=== PATIENT | female | born 1950 | race Caucasian/White ===

== ENCOUNTER 2024-04-17 13:14 | Emergency (ER) | payer MEDICARE ==
[2024-04-17 13:48] LABS: BASOPHILS ABSOLUTE AUTO 0.04 K/uL (0.00-0.10); BASOPHILS PERCENT AUTO 0.4 % (0.1-1.3); EOSINOPHILS ABSOLUTE AUTO 0.07 K/uL (0.00-0.40); EOSINOPHILS PERCENT AUTO 0.8 % (0.0-5.4); HEMATOCRIT 39.7 % (34.3-46.0); HEMOGLOBIN 13.9 g/dL (11.2-15.5); IMMATURE GRAN ABSOLUTE AUTO 0.06 K/uL (0.00-0.23); IMMATURE GRAN PERCENT AUTO 0.7 % (0.0-0.7); LYMPHOCYTES ABSOLUTE AUTO 1.36 K/uL (0.8-3.3); LYMPHOCYTES PERCENT AUTO 14.8 % (11.4-47.7); MEAN CORPUSCULAR HEMOGLOBIN 32.4 pg (31.6-35.5); MEAN CORPUSCULAR VOLUME 92.5 fL (81.4-99.0); MONOCYTES ABSOLUTE AUTO 0.37 K/uL (0.20-0.90); NEUTROPHILS ABSOLUTE AUTO 7.26 K/uL (1.0-7.6); NEUTROPHILS PERCENT AUTO 79.3 % (40.0-78.1); PLATELET COUNT,PLT 243 K/uL (130-375); RED BLOOD CELL COUNT 4.29 M/uL (3.77-5.24); WHITE BLOOD CELL COUNT,WBC 9.2 K/uL (3.2-11.0)
[2024-04-17] MEDS: Ondansetron 4 MG/2 ML SDV IVPUSH ONE (13:52)
[2024-04-17] MEDS: HYDROmorphone 0.5 MG/0.5 ML Syringe IVPUSH ONE (13:52)
[2024-04-17] MEDS: Sodium Chloride 0.9% 1,000 ML IV ONE (13:52)
[2024-04-17 14:08] LABS: A/G RATIO 1.1 (1.2-2.2); ALANINE AMINOTRANSFERASE,ALT 18 U/L (12-78); ALKALINE PHOSPHATASE 108 U/L (46-116); ANION GAP 14.6 mmol/L (5.0-14.0); ASPARTATE AMNIOTRANSFERASE,AST 16 U/L (15-37); BILIRUBIN TOTAL 1.1 mg/dL (0.2-1.0); BLOOD UREA NITROGEN,BUN 13 mg/dL (7-18); C-REACTIVE PROTEIN 0.67 mg/dL (<0.50); CARBON DIOXIDE,CO2 23 mmol/L (21-32); CHLORIDE,CL 103 mmol/L (100-108); CREATININE 1.1 mg/dL (0.6-1.0); EST CRCL DRUG DOSING (CG) 42.44 mL/min; ESTIMATED GFR 53 mL/min (>60); GLUCOSE RANDOM 149 mg/dL (74-106); POTASSIUM,K 3.8 mmol/L (3.6-5.2); PROTEIN TOTAL,TP 7.5 g/dL (6.4-8.2); SODIUM,NA 141 mmol/L (140-148)
[2024-04-17 15:19] LABS: APPEARANCE,URINE CLOUDY (CLEAR); BILIRUBIN,URINE SMALL (NEGATIVE); COLOR,URINE BROWN (YELLOW); GLUCOSE,URINE NEGATIVE (NEGATIVE); KETONES,URINE 15 mg/dL (NEGATIVE); LEUKOCYTE ESTERASE,URINE NEGATIVE (NEGATIVE); NITRITE,URINE NEGATIVE (NEGATIVE); OCCULT BLOOD,URINE LARGE (NEGATIVE); PH,URINE 7.5 (5.0-8.0); PROTEIN,URINE 100 mg/dL (NEGATIVE)
[2024-04-17 15:25] LABS: AMORPHOUS SEDIMENT,URINE NOT SEEN; BACTERIA,URINE FEW; EPITHELIAL CELLS,URINE FEW; MUCUS,URINE NOT SEEN; RBC,URINE 50-75 (0-5); WBC,URINE 0-5 (0-5)
[2024-04-17] MEDS: Ketorolac 15 MG/ML SDV IVPUSH ONE (15:26)
[2024-04-17] MEDS: Tamsulosin 0.4 MG Cap.ER PO ONE (16:12)
== END 2024-04-17 16:31 | disposition home or self-care (01) ==
LOC: JP.ED 13:14
DX: N13.2 Hydronephrosis with renal and ureteral calculous obstruction (principal); Z79.899 Other long term (current) drug therapy; Z90.49 Acquired absence of other specified parts of digestive tract; Z90.710 Acquired absence of both cervix and uterus
CPT/HCPCS: 36415; 74176; 80053; 81001; 83605; 85025; 86140; 96361; 96374; 96375; 99284; A9270; J1170; J1885; J2405; J7040